=== PATIENT | female | born 1975 | race Two or more races ===

== ENCOUNTER 2022-11-14 11:45 | Outpatient (REF) | payer MEDICAID, OTHER, SELFPAY ==
--- NOTE | 2022-11-14 10:00 | EMG_ITS ---
Right median and ulnar motor and sensory studies were performed. Right radial sensory study was performed and paraspinal muscles were tested. IMPRESSION: [id number] right median neuropathy across carpal tunnel. MD BLANCA Holman/MELL / [id number]
== END 2022-11-14 11:46 | disposition home or self-care (01) ==
LOC: HO.NEURO 11:45
PROVIDERS: PCP Internal Medicine; Visit Provider Internal Medicine
DX: R20.0 Anesthesia of skin (principal)
CPT/HCPCS: 95886; 95909

== ENCOUNTER 2025-05-26 10:31 | Outpatient (REF) | payer OTHER, SELFPAY ==
--- OUTSIDE RECORDS SUMMARY | 2025-05-26 13:05 | XMS_ITS | Encounter Summary ---
Author Organization [employer] Address [address] [facility] 7 [place] [address] Care Team Providers Care Sleeve Setter Safety Stitch Name Role Phone Estela Honeycutt MD Primary Care Provider [phone] Reason for Visit * Reason Comments Med Refill Encounter Details Date Type Department Care Team ([facility] st Contact Info) Description 03/18/2024 Refill [facility] [address] [place] [address] Estela Honeycutt MD [address] [place] [address] Social History Tobacco Use Types Packs/Day Years Used Date Smoking Tobacco: Never Passive Smoke Exposure: Never Smokeless Tobacco: Never Alcohol Use Standard Drinks/Week Comments Never 0 (1 standard drink = 0.6 oz pur e alcohol) Depression Answer Date Recorded Patient Health Questionnaire-9 Score 3 10/18/2022 Housing Stability Answer Date Recorded What is your housing situation today? I have liane sandoval 06/11/[address] you li ve. Do you have problems with any of the following? None of the above 06/11/2023 Food Insecurity Answer Date Recorded Within the past 12 months, y ou worried that your food would run out before you got money to buy more: Never True 06/11/2023 Within the past 12 months,th e food you bought just didn't last and you didn't have enough money to get more: Never True 08/2022 Transportation Answer Date Recorded In the past 12 months, has l ack of transportation kept you from medical appts, meetings, work or from getting things needed for daily living? No 06/11/2023 Utilities Answer Date Recorded In the past 12 months, has t he electric, gas, oil or water company threatened to shut off services in your home? No 06/11/2023 Depression Answer Date Recorded Patient Health Questionnaire-2 Score 2 10/18/2022 Comments Unknown Sex and Gender Information Value Date Recorded Sex Assigned at Female 06/10/2022 10:38 AM EDT Legal Sex Female 10:38 AM EDT Gender Identity Female 06/10/2022 10:38 AM EDT Sexual Orientation Straight 06/10/2022 10 :38 AM EDT documented as of this encounter Plan of Treatment Not on file documented as of this encounter Visit Diagnoses Not on filedocumented in this encounter Additional Health Concerns Assessment Noted Time PHQ-9 Depression Total Score: 3 10/19/19 10:14 AM EST documented as of this encounter Care Teams Sleeve Setter Safety Stitch Relationship Specialty Start Date End Date Estela Honeycutt MD [address] [place] [id number] PCP - General Family Medicine 08/29/22 documented as of this encounter
--- OUTSIDE RECORDS SUMMARY | 2025-05-26 13:05 | XMS_ITS | Clinical Summary ---
Author Organization [employer] Address [address] [facility] 7 [place] [address] Care Team Providers Care Fourdrinier Machine Operator Name Role Phone Estela Honeycutt MD Primary Care Provider [phone] Allergies Active Allergy Reactions Criticality Noted Date Comments Ferumoxytol 08/30/2022 chest pain, abd pain, facial flushing. Epi needed Iodine Anaphylaxis High 02/19/2022 Medications Diclofenac Sodium 1 % gel Apply topically. 2 Active cyanocobalamin (Vitamin B-12) 1000 MCG tablet TAKE 1 TABLET BY MOUTH EVERY DAY 2 Active cholecalciferol (Vitamin D-3) 50 MCG (1999) capsuleIndicatio ns:Vitamin D deficiency Take 1 capsule (50 mcg) by mouth in the morning. 90 capsule 4 3 Active Elastic Bandages & Supports (Wrist Brace Deluxe/Right S/M) miscIndications: Numbness and tingling in right hand To use daily at bedtime 1 each 3 Active Additional Information Patient not taking.Reported on 02/17/2025 ferrous gluconate (Fergon) 324 (38 Fe) MG tablet Take 1 tablet (324 mg) by mouth 2 times daily. 180 tablet 1 3 Active triamcinolone (Kenalog) 0.5 % ointment Apply topically 2 times daily. 30 g 3 3 Active Additional Information Patient not taking.Reported on 02/17/2025 medroxyPROGESTER one (Provera) 5 MG tablet Take 1 tablet (5 mg) by mouth in the morning. 21 tablet 2 3 Active Additional Information Patient not taking.Reported on 02/17/2025 levothyroxine (Synthroid, Levoxyl) 125 MCG tabletIndication s:Hypothyroidism , unspecified type TAKE ONE TABLET DAILY BEFORE BREAKFAST 90 tablet 1 3 Active cetirizine (ZyrTEC) 10 MG tablet TAKE ONE TABLET EVERY MORNING 90 tablet 1 4 Active Additional Information Patient not taking.Reported on 02/17/2025 tiZANidine (Zanaflex) 4 MG tablet Take 4 mg by mouth. 4 Active sertraline (Zoloft) 25 MG tablet Take 25 mg by mouth. 3 Active oxyCODONE (Roxicodone) 5 MG immediate release tablet TAKE ONE TABLET BY MOUTH EVERY SIX HOURS NEEDED FOR PAIN 4 Active meloxicam (Mobic) 7.5 MG tablet Take 7.5 mg by mouth. 4 Active Active Problems Problem Noted Date Diagnosed Date Abnormal uterine bleeding 03/13/2023 Hyperlipidemia 01/23/2023 Assessment & Plan (01/23/2023 12:10 PM EDT): Will recheck levels. Chronic pain of right knee 10/18/2022 Assessment & Plan (01/23/2023 12:11 PM EDT): Patient with chronic persistent pain in R knee. Will schedule appointment for steroid injection. Numbness and tingling in right hand 10/18/2022 Hypothyroidism 08/30/2022 Assessment & Plan (01/23/2023 12:10 PM EDT): Will send labs to recheck levels. Iron deficiency anemia 08/30/2022 Encounters Date Type Department Care Team Description 03/24/2025 9:00 AM EDT Office Visit [facility] [address] [place] [address] Octavio Thomas DMD Full coverage crown needed for root canal-treated tooth (Primary Dx) 02/24/2025 10:00 AM EDT Office Visit [facility] [address] [place] [address] Octavio Thomas, ADRIANA Full coverage crown needed for root canal-treated tooth (Primary Dx) from Last 3 Months Family History Relation Name Status Comments Father Social History Tobacco Use Types Packs/Day Years Used Date Smoking Tobacco: Never Passive Smoke Exposure: Never Smokeless Tobacco: Never Tobacco Cessation:Counseling Given: Not Answered Alcohol Use Standard Drinks/Week Comments Never 0 [...] Orientation Straight 06/10/2022 10 :38 AM EDT Last Filed Vital Signs Vital Sign Reading Time Taken Comments Blood Pressure 120/76 03/24/2025 9:09 AM EDT Pulse 70 03/24/2025 9:09 AM EDT Temperature 37.1 C (98.8 F) 03/13/2023 3:58 PM EDT Respiratory Rate 20 03/13/2023 3:58 PM EDT Oxygen Saturation 98% 03/13/2023 3:58 PM EDT Inhaled Oxygen Concentration - - Weight 71.7 kg (158 lb) 03/13/2023 3:58 PM EDT Height 156 cm (5' 1.42 ) 03/13/2023 3:58 PM EDT Body Mass Index 29.45 03/13/2023 3:58 PM EDT Plan of Treatment Health Maintenance Due Date Last Done Comments CT Colonography 1977 Colonoscopy 1977 Colorectal Cancer Screening 1977 FIT DNA/Cologuard 1977 FIT 1977 FOBT 1977 HIV Screening 1977 Sigmoidoscopy 1977 Disability Screening 1977 Alcohol/Substance Use Screening 1989 Family Planning (PISQ) 1992 Hepatitis C Screening 12/27/1995 Hepatitis B Vaccines (1 of 3 - 19+ 3-dose series) 1996 Pap Smear 1998 Cervical Cancer Screening 12/27/2007 HPV/Cotest 12/27/2007 Mammogram 2017 Depression Screening 10/19/2023 10/18/2022, 10/19/19 23 SDOH Screening 10/19/2023 10/18/2022 Dental X-Ray: Full Mouth 03/06/2024 03/05/2021 Dental Oral Exam 07/25/2024 01/23/2024, , 03/05/2021 Dental Prophylaxis 08/28/2024 02/25/2024, 04/03/2022 COVID-19 Vaccine ( season) 2025 12/28/2020, 12/07/2020 Influenza Vaccine (#1) 2025 Dental X-Ray: Bitewings 09/21/2025 09/20/19 25, 01/23/2024, 04/03/2022, Additional history exists Tobacco Screening 03/24/2026 03/24/2025 Zoster Vaccines (1 of 2) 12/27/2027 DTaP/Tdap/Td Vaccines (2 - Td or Tdap) 02/18/2034 02/19/2024 RSV Patients and Patients Aged 60 years or older (1 - 1-dose 75+ series) 2052 HIB Vaccines Aged Out No longer eligi ble based on patient's age to complete this topic HPV Vaccines Aged Out No longer eligi ble based on patient's age to complete this topic Hepatitis A Vaccines Aged Out No long er eligible based on patient's age to complete this topic IPV Vaccines Aged Out No longer eligi ble based on patient's age to complete this topic Meningococcal B Vaccine Aged Out No l onger eligible based on patient's age to complete this topic Meningococcal Vaccine Aged Out No michael sondra eligible based on patient's age to complete this topic Pneumococcal Vaccine: Pediatrics (0 to 5 Years) and At-Risk Patients (6 to 49) Years Aged Out No longer eligible based on patient's age to complete this topic RSV under 20 months Aged Out No longe r eligible based on patient's age to complete this topic Rotavirus Vaccines Aged Out No longer eligible based on patient's age to complete this topic Procedures Procedure Name Priority Date/Time Associated Diagnosis Comments CASE PRESENTATION, DETAILED AND EXTENSIVE TREATMENT PLANNING Routine 03/24/2025 9:00 AM EDT Full coverage crown needed for root canal-treated tooth 3 CROWN - PORCELAIN/CERAMIC Routine 03/24/2025 9:00 AM EDT Full coverage crown needed for root canal-treated tooth CASE PRESENTATION, DETAILED AND EXTENSIVE TREATMENT PLANNING Routine 02/24/2025 10:00 AM EDT Full coverage crown needed for root canal-treated tooth 3 CROWN PREP Routine 02/24/2025 10:00 AM EDT Full coverage crown needed for root canal-treated tooth BITEWING - SINGLE RADIOGRAPHIC IMAGE Routine 09/20/2024 10:00 AM EST Dental caries Reversible pulpitis Full PROPHYLAXIS - ADULT Routine 024 3:00 PM EDT PERIODIC ORAL EVALUATION - ESTABLISHED PATIENT Routine 01/23/2024 8:00 AM EDT INTRAORAL - COMPLETE SERIES OF RADIOGRAPHIC IMAGES Routine 03/05/2021 12:00 AM EDT from Last 3 Months or Most Recently Relevant to Health Maintenance Insurance [facility] [employer] [facility] STAND ADULT Care Teams Fourdrinier Machine Operator Relationship Specialty Start Date End Date Estela Honeycutt MD [address] [place] [address] [phone] PCP - General Family Medicine 08/29/22
--- OUTSIDE RECORDS SUMMARY | 2025-05-26 13:05 | XMS_ITS | Encounter Summary ---
Author Organization [employer] Address [address] [facility] 7 [place] [address] Care Team Providers Care Lift Slab Operator Name Role Phone Estela Honeycutt MD Primary Care Provider [phone] Encounter Details Date Type Department Care Team (Latest Contact Info) Description 04/03/[address] [facility] CONVERSIONS Dental, Provider, DDS Social History Tobacco Use Types Packs/Day Years Used Date Smoking Tobacco: Never Assessed Comments Unknown Sex and Gender Information Value Date Recorded Sex Assigned at Female 06/10/2022 10:38 AM EDT Legal Sex Female 10:38 AM EDT Gender Identity Female 06/10/2022 10:38 AM EDT Sexual Orientation Straight 06/10/2022 10 :38 AM EDT documented as of this encounter Plan of Treatment Not on file documented as of this encounter Visit Diagnoses Not on filedocumented in this encounter Care Teams Lift Slab Operator Relationship Specialty Start Date End Date Estela Honeycutt MD [address] [place] [id number] PCP - General Family Medicine 08/29/22 documented as of this encounter
[2025-05-26 13:30] LABS: MANUAL DIFF FLAG NO
[2025-05-26 13:47] LABS: Hematocrit 41.3 % (37.0-47.0); Hemoglobin 13.1 g/dl (12.0-16.0); Imm Gran Abs Auto 0.02 X10*3/uL (0.00-0.03); Imm Gran Pct Auto 0.4 % (0.0-0.4); Lymphocytes Absolute Auto 1.2 X10*3/uL (1.2-4.9); Mean Corpuscular HGB Conc 31.7 g/dl (31.0-35.0); Mean Corpuscular Hemoglobin 24.1 pg (27.0-33.0); Mean Corpuscular Volume 76.1 fL (80.0-98.0); NRBC Abs Auto 0.000 X10*3/uL (0.0-0.012); NRBC Pct Auto 0.0 /100WBC (0.0-0.2); Platelet Count 184 X10*3/uL (160-400); Red Blood Count 5.43 X10*6/uL (4.20-5.50); White Blood Count 4.9 X10*3/uL (4.8-10.8)
[2025-05-26 14:27] LABS: Albumin Level 4.5 g/dL (3.5-5.0); Alkaline Phosphatase 51 U/L (39-117); Anion Gap 10 (12-20); Aspartate Amino Transferase 32 U/L (5-31); Blood Urea Nitrogen 13 mg/dL (9-16); Calcium 9.0 mg/dL (8.4-10.2); Carbon Dioxide 25 mmol/L (22-29); Chloride 110 mmol/L (96-108); Estimated Glomerular Filt Rate > 60; Ferritin 55 ng/mL (10-250); Potassium 4.6 mmol/L (3.3-5.1); Sodium 140 mmol/L (135-145); Thyroid Stimulating Hormone 0.61 uIU/mL (0.32-4.0); Total Protein 7.3 g/dL (6.5-8.0)
[2025-05-26 14:37] LABS: Alanine Aminotransferase 41 U/L (0-31); Folate 5.0 ng/mL (> or = 4.0); Vitamin B12 298 pg/mL (200-900)
[2025-05-27 20:39] LABS: Immunoglobulin A 177 mg/dL (47-310)
[2025-05-29 15:55] LABS: Intrinsic Factor Antibodies Negative (Negative)
== END 2025-05-26 10:32 | disposition home or self-care (01) ==
LOC: HO.10HDL 10:31
PROVIDERS: Visit Provider Internal Medicine
DX: Z00.01 Encounter for general adult medical examination with abnormal findings (principal); D50.0 Iron deficiency anemia secondary to blood loss (chronic); D51.9 Vitamin B12 deficiency anemia, unspecified; E03.9 Hypothyroidism, unspecified; R19.7 Diarrhea, unspecified
CPT/HCPCS: 36415; 80053; 82607; 82728; 82746; 82784; 83516; 84443; 85025; 86340; 86364

== ENCOUNTER 2025-07-27 09:21 | Outpatient (REF) | payer OTHER, SELFPAY ==
--- OUTSIDE RECORDS SUMMARY | 2025-07-27 12:47 | XMS_ITS | Encounter Summary ---
Author Organization [employer] Address [address] [place] [address] Care Team Providers Care Office Secretary Name Role Phone Estela Honeycutt MD Primary Care Provider [phone] Reason for Visit * Reason Comments Med Refill Encounter Details Date Type Department Care Team ([facility] st Contact Info) Description 03/18/2024 Refill [facility] [address] [place] [address] Estela Honeycutt MD [address] [place] [address] Social History Tobacco Use Types Packs/Day Years [...] as of this encounter Plan of Treatment Upcoming Encounters Date Type Department Care Team (Late st Contact Info) Description 11/02/2025 10:00 AM EDT Office Visit [facility] [address] [place] [address] Roe, Ilana, OD [address] [place] [address] documented as of this encounter Visit Diagnoses Not on filedocumented in this encounter Additional Health Concerns Assessment Noted Time PHQ-9 Depression Total Score: 3 10/19/19 23 10:14 AM EST documented as of this encounter Care Teams Office Secretary Relationship Specialty Start Date End Date Estela Honeycutt MD [address] [place] [address] PCP - General Family Medicine 08/29/22 documented as of this encounter
--- OUTSIDE RECORDS SUMMARY | 2025-07-27 12:47 | XMS_ITS | Clinical Summary ---
Author Organization [employer] Address [address] [facility] [facility] [address] [place] [address] Care Team Providers Care Skidder Runner Name Role Phone Estela Honeycutt MD Primary Care Provider [phone] Allergies Active Allergy Reactions Criticality Noted Date [...] Encounters Date Type Department Care Team Description 07/19/2025 Orders Only [facility] [address] [place] [address] Octavio Thomas DMD 06/27/2025 Travel from Last 3 Months Family History Relation [...] 03/13/2023 3:58 PM EDT Plan of Treatment Upcoming Encounters Date Type Department Care Team (Late st Contact Info) Description 11/02/2025 10:00 AM EDT Office Visit [facility] [address] [place] [address] Ilana Au, OD [address] [place] [address] Health Maintenance Due Date Last Done Comments [...] Vaccine (#1) 2025 Dental X-Ray: Bitewings 09/21/2025 09/20/19, 01/23/2024, 04/03/2022, Additional history exists Tobacco Screening [...] Procedure Name Priority Date/Time Associated Diagnosis Comments BITEWING - SINGLE RADIOGRAPHIC IMAGE Routine 09/20/2024 10:00 AM EST Dental caries Reversible pulpitis Full PROPHYLAXIS - ADULT Routine 024 3:00 PM EDT PERIODIC ORAL EVALUATION - ESTABLISHED PATIENT Routine 01/23/2024 8:00 AM EDT INTRAORAL - COMPLETE SERIES OF RADIOGRAPHIC IMAGES Routine 03/05/2021 12:00 AM EDT from Last 3 Months or Most Recently Relevant to Health Maintenance Insurance [facility] STANDARD [facility] MEDICAID STAND ADULT Care Teams Skidder Runner Relationship Specialty Start Date End Date Estela Honeycutt MD [address] [place] [address] PCP - General Family Medicine 08/29/22
--- OUTSIDE RECORDS SUMMARY | 2025-07-27 12:47 | XMS_ITS | Encounter Summary ---
Author Organization [employer] Address [address] [facility] [address] [place] [address] Care Team Providers Care Sales Administrator Name Role Phone Estela Honeycutt MD Primary Care Provider [phone] Encounter Details Date Type Department Care Team (Latest Contact Info) Description 04/03/2022 Abstract [facility] CONVERSIONS Dental, Provider, DDS Social History Tobacco [...] Description 11/02/2025 10:00 AM EDT Office Visit [facility] [address] [place] [address] Roe, Ilana, OD [address] [place] [address] documented as of this encounter Visit Diagnoses Not on filedocumented in this encounter Care Teams Sales Administrator Relationship Specialty Start Date End Date Estela Honeycutt MD [address] [place] [address] PCP - General Family Medicine 08/29/22 documented as of this encounter
[2025-07-27 13:50] LABS: Cholesterol 172 mg/dL (<200); HDL Cholesterol 45 mg/dL (>40); Iron 52 mcg/dL (30-160); Percent Iron Saturation 15 % (15-50); Total Iron Binding Capacity 336 mcg/dL (228-428); Triglycerides 97 mg/dL (<150); Unsaturated Iron Binding 284 ug/dL
[2025-07-28 04:44] LABS: HBS Num1 0.00 mIU/mL (0-7.99); HBc Num1 0.06 S/CO (0.00-0.79); HIV Num 1 0.08 S/CO (0.00-0.99); Hepatitis A Antibody IgM 0.19 Index (0-0.79); ~HepC Num1 0.07 S/CO (0.00-0.79); ~Hepatitis A Antibody IgM Nonreactive (Nonreactive); ~Hepatitis B Surface Antibody NONREACTIVE (Nonreactive); ~Hepatitis C Antibody Nonreactive (Nonreactive)
[2025-07-28 04:58] LABS: Syphilis Screen Nonreactive (Nonreactive)
[2025-07-28 13:35] LABS: HBsAGNum1 0.29 S/CO (0.00-0.99); Hepatitis B Surface Antigen Negative (Negative)
== END 2025-07-27 09:22 | disposition home or self-care (01) ==
LOC: HO.10HDL 09:21
PROVIDERS: PCP Physician Assistant; Visit Provider Student in an Organized Health Care Education/Training Program
DX: Z00.00 Encounter for general adult medical examination without abnormal findings (principal); D50.9 Iron deficiency anemia, unspecified; E03.9 Hypothyroidism, unspecified; E53.8 Deficiency of other specified B group vitamins; M25.561 Pain in right knee; M25.562 Pain in left knee; Z79.890 Hormone replacement therapy
CPT/HCPCS: 36415; 80061; 82306; 83036; 83540; 83921; 86704; 86706; 86709; 86780; 86803; 87340; 87389; 96127; 99202; 99386

== ENCOUNTER 2025-07-27 09:21 | Outpatient (AMB) | payer OTHER, MEDICAID, SELFPAY ==
--- NOTE | 2025-07-27 09:26 | A.OFFPC_ITS ---
Vital Signs 07/27/25 09:29 Height 5 ft 1.5 in Weight 171 lb BMI 31.8 BP 120/80 Blood Pressure Location Lt brachial Position Sitting Pulse 62 Pulse Source Pulse Oximeter Temp 97.8 F Temp Source Temporal Artery Scan Pulse Oximetry (%) 98 Oxygen Delivery Method Room Air Intake Visit Reasons: New Patient Bridge Rigger Required: No Accompanied by: Self / Same As Patient Allergies No Known Allergies Allergy (Verified 07/27/25 09:27) Medication List - Last Reconciled 07/27/25 by Jovanny Cisneros MD levothyroxine 125 mcg PO DAILY Tobacco use date assessed: 07/27/25 Dental Screening Dental Screen Date: 07/27/25 Did you have a dental visit in the last 12 months?: Yes Did you have a dental problem in the last 6 months where you did not have access to dental care?: No HPI HPI Comments History of Present Illness Details History of Present Illness The patient is a 49 year old female presenting to [facility] care and for management of her chronic medical conditions. She has a history of hypothyroidism and takes levothyroxine 125 mcg regularly. Her recent thyroid level was 0.61, indicating it is well-controlled. She does not see an central communications specialist for this condition. The patient has a long-standing history of anemia for which she receives iron infusions at [facility], with her next scheduled visit in September. She reports a history of an allergic reaction to an unspecified iron formulation that required epinephrine. About six months ago, she was admitted to the emergency department for significant right-sided numbness and was diagnosed with a severe vitamin B12 deficiency, for which she received B12 injections. She has since stopped the injections, and her current B12 levels are borderline. She also reports bilateral knee pain that worsens with walking, although she continues to walk regularly. A previous physician had recommended knee X-rays and physical therapy, which were not completed due to insurance issues, and a trial of topical ointment was not helpful. For health maintenance, the patient is overdue for a mammogram, Pap smear, and colonoscopy. She has never had a mammogram or Pap smear. She had a colonoscopy scheduled for next October but was uncomfortable because the provider was male. She was also told previously that she may be pre-diabetic based on her A1c levels. Medical History: - Hypothyroidism, managed with levothyro xine 125 mcg - Iron deficiency anemia, requiring intr avenous iron infusions - Vitamin B12 deficiency, previously valentin ated with injections - Allergic reaction to an intravenous ir on formulation - Bilateral knee pain - History of right-sided numbness second minoo to B12 deficiency - Pre-diabetes - History of treatment for an unspecifie d condition, Kypertone Surgical History: - sections Medications: - Levothyroxine 125 mcg for hypothyroidi sm Family History: - Denies family history of heart disease , diabetes, or cancer. Diagnostic Results: - TSH: 0.61 (May) - CBC: Revealed microcytosis without ane db. - Vitamin B12: Borderline level. - Hemoglobin A1c: Previously elevated, s uggestive of pre-diabetes. Social History - Substance Use: Denies ever smoking, al cohol use, or illicit drug use. 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 - Exercise: Reports walking regularly. - Vaccinations: Has received COVID-19 Pricebets ccinations; declines the flu shot. [facility] Medical History (Updated 07/27/25 @ 10:25 by Jovanny Cisneros MD) Annual physical exam B12 deficiency Iron deficiency anemia Hypothyroidism (acquired) Knee pain Microcytic anemia Family History (Updated 07/27/25 @ 09:34 by Veronika Lacy MA) Mother No problems noted. Father No problems noted. Social History Housing: Condominium Patient Tobacco Use Status: Never used Tobacco e-Cigarette/Vaping Use: Never Used service: No Current occupational status: employed Cognitive needs: No Hearing needs: No Vision needs: Yes (reading glasses) Questionnaire PHQ-9 Over the last 2 weeks, how often have you been bothered by any of the following problems? 1. Little interest or pleasure in doing things: not at all 2. Feeling down, depressed, or hopeless: not at all 3. Trouble falling or staying asleep, or sleeping too much: not at all 4. Feeling tired or having little energy: not at all 5. Poor appetite or overeating: not at all 6. Feeling bad about yourself - or that you are a failure or have let yourself or your family down: not at all 7. Trouble concentrating on things, such as reading the newspaper or watching television: not at all 8. Moving or speaking so slowly that other people could have noticed. Or the opposite - being so fidgety or restless that you have been moving around a lot more than usual: not at all 9. Thoughts that you would be better off or of hurting yourself in some way: not at all Total score: 0 Depression Screening Interpretation: Negative Depression Screening Done: Yes 73791 - PHQ-9 Billing: Yes Source: Developed by Drs. Rambo Plunkett, Antonietta Hoyt, Ronak Clark and colleagues, with an educational cristopher from [employer]. Thrive Questionnaire Date Thrive assessed: 07/27/25 I am a: Patient Within the past 12 months, did the food you bought not last and you didn't have the money to get more?: Never true Within the past 12 months, did you worry whether your food would run out before you got money to buy more?: Never true Do you have trouble paying for medicines?: No Do you have trouble getting transportation to medical appointments?: No Do you have trouble paying your heating and electricity bill?: No Do you have trouble taking care of your child, family member or friend?: No Do you have trouble with day-to-day activities such as bathing, preparing meals, shopping, managing finances, etc.?: No Are you currently unemployed and looking for a job?: No Are you interested in more education?: No THRIVE Score: 0 AUDIT C Alcohol Use Questionnaire (AUDIT-C) 1. How often do you have a drink containing alcohol?: Never 3. How often do you have six or more drinks on one occasion?: Never Total Score: 0 Score Reviewed/Action Taken: Yes SUJATHA-7 AMB Questionnaire SUJATHA-7 Date SUJATHA - 7 assessed: 07/27/25 Feeling nervous, anxious, or on edge: 0 = Not at all Not being able to stop or control worryin = Not at all Worrying too much about different things: 0 = Not at all Trouble relaxin = Not at all Being so restless that it is hard to sit still: 0 = Not at all Becoming easily annoyed or irritable: 0 = Not at all Feeling afraid as if something awful might happen: 0 = Not at all Total SUJATHA-7 score (0-4 normal; 5-9 mild; 10-14 moderate; 15-21 severe): 0 Source: Developed by Drs. Rambo Plunkett, Antonietta Hoyt, Ronak Clark and colleagues, with an educational cristopher from [employer]. SUJATHA-7 Assessment Billing SUJATHA-7 Assessment Tool: SUJATHA-7 Assessment 47902 Review of Systems Narrative Review of Systems - Constitutional: Denies fever, chills. - Cardiovascular: Denies chest pain. - Respiratory: Denies shortness of breath. - Gastrointestinal: Denies nausea or vomiting. - Musculoskeletal: Reports bilateral knee pain, which is exacerbated by walking. - Neurological: Reports a history of right-sided numbness which has since resolved. All systems reviewed & are unremarkable except as reviewed in HPI and above Physical exam (Primary Care) Vital Signs: Last Vital Signs Temp 97.8 F 07/27/25 09:29 Pulse 62 07/27/25 09:29 BP 120/80 07/27/25 09:29 Pulse Ox 98 07/27/25 09:29 Oxygen Delivery Method Room Air 07/27/25 09:29 BMI result Body Mass Index 31.8 Tobacco/Smoking Status: Tobacco use Status Tobacco use date assessed 07/27/25 07/27/25 09:31 Patient Tobacco Use Status Never used Tobacco 07/27/25 09:31 e-Cigarette/Vaping Use Never Used 07/27/25 09:34 PHQ-9: PHQ-9 Score PHQ-9: Total score 0 07/27/25 09:50 Depression Screening Interpretation: Negative Thrive Assessment: Date of Thrive Assessment Date Thrive assessed 07/27/25 07/27/25 09:31 Narrative Physical Exam General: +Alert and oriented, Well nourished, No acute distress. Eye: Pupils are equal, round and reactive to light, Intact accommodation, Extraocular movements are intact, Normal conjunctiva, Vision unchanged. HENT: Normocephalic, Atraumatic, Tympanic membranes are clear, Normal hearing, Oral mucosa is moist, No pharyngeal erythema, Ear canals patent. Respiratory: Lungs CTA bilaterally, No wheeze, Respirations are non-labored. Cardiovascular: Regular rate, Regular rhythm, S1 auscultated, S2 auscultated, No murmur, Good pulses equal in all extremities, Normal peripheral perfusion, No edema. Gastrointestinal: Soft, Non-tender, Non-distended, Normal bowel sounds, No organomegaly. Musculoskeletal: Normal range of motion, Normal strength, No tenderness, No swelling, No deformity, Normal gait. Patient reports knee pain and has been referred for knee x-rays and therapy. Integumentary: Warm, Dry, [place], Intact. Neurologic: Alert, Oriented, Normal sensory, Normal motor function, No focal defects, Cranial Nerves II-XII are grossly intact, Normal deep tendon reflexes. Psychiatric: Cooperative, Appropriate mood & affect, Normal judgment. Coding Level of Care Code New Pt Level 4 (52510) New Pt Prev Care 40-64y(68806) Diagnoses Hypothyroidism (acquired) E03.9 Iron deficiency anemia, unspecified iron deficiency anemia type D50.9 Iron deficiency anemia type: unspecified iron deficiency B12 deficiency E53.8 Pain in both knees, unspecified chronicity M25.561; M25.562 Chronicity: unspecified Laterality: bilateral Annual physical exam Z00.00 Additional Codes SUJATHA-7 Assessment Billing - SUJATHA-7 Assessment Tool: SUJATHA-7 Assessment 50423 ([id number]) PHQ-9 - 51606 - PHQ-9 Billing: Yes ([id number]) Comment 44838-05 Assessment & Plan Assessment & Plan (1) Hypothyroidism (acquired): Comment: - Condition is well-controlled on levothyroxine 125 mcg, with a recent TSH of 0.61. - Plan to continue current medication dosage and re-check thyroid levels with routine labs. Code(s): E03.9 - Hypothyroidism, unspecified Category: Medical (2) Iron deficiency anemia: Comment: - Patient has a history of long-standing anemia requiring infusions and a past allergic reaction. - Plan to order an iron panel to assess current status. - Advised the patient to identify the specific iron formulation that caused the prior reaction. - Informed her that infusions are available at this facility. Code(s): D50.9 - Iron deficiency anemia, unspecified Category: Medical Qualifiers: Iron deficiency anemia type: unspecified iron deficiency Qualified Code(s): D50.9 - Iron deficiency anemia, unspecified (3) B12 deficiency: Comment: - History of significant deficiency with neurological symptoms. - Current levels are borderline. - Plan to check vitamin B12 levels. Code(s): E53.8 - Deficiency of other specified B group vitamins Category: Medical (4) Knee pain: Comment: - Patient reports pain in both knees, worse with walking. - Plan to order bilateral knee X-rays to evaluate for underlying pathology. - Discussed that physical therapy is often a mainstay of treatment. Code(s): M25.569 - Pain in unspecified knee Category: Medical Qualifiers: Chronicity: unspecified Laterality: bilateral Qualified Code(s): M25.561 - Pain in right knee; M25.562 - Pain in left knee (5) Annual physical exam: Comment: - The patient is new to the practice. - Plan includes a comprehensive work-up and establishing care for long-term follow-up. - Will see back in 3-6 months to review results and continue management. - The patient is overdue for multiple screenings. - Plan includes: ordering a mammogram for breast cancer screening, referring to SHIP RIGGER APPRENTICE for a Pap smear, and referring to a female home appliances mechanic for a c olonoscopy. - Will also perform baseline lab screening, including an A1c for diabetes, a lipid panel, hepatitis screen, HIV screen, urinalysis, and vitamin D level. Code(s): Z00.00 - Encounter for general adult medical examination without abnormal findings Category: Medical Plan: Health Maintenance: - Diabetes screening: Will order an A1c to screen for diabetes due to a prior borderline result. - Breast cancer screening: Ordered a mammogram, as the patient reports never having had one. - Cervical cancer screening: Advised patient to get a Pap smear and will place a referral to SHIP RIGGER APPRENTICE, as she has never had one. - Colon cancer screening: Patient is due for a colonoscopy. Given her discomfort with a male provider, a referral will be sent to a female home appliances mechanic. - Vaccinations: Patient has received COVID-19 shots but declined the influenza vaccine today. - Lab screening: Ordered a lipid panel, hepatitis panel, HIV screen, vitamin D level, and iron panel for comprehensive health assessment. Patient was informed and verbally consented to the use of an ambient scribe for clinic note documentation during this visit. Vital signs reviewed. Comprehensive history, review of systems, and physical exam completed. Medications, allergies, and problem list reviewed and updated. Counseling provided on nutrition, regular exercise, sleep hygiene, and moderation of alcohol use. Discussed age-appropriate screenings (mammogram, colonoscopy, Pap, bone density) and immunizations (flu, COVID, shingles, Tdap). Screened for depression, fall risk, and home safety; no current concerns. Discussed stress management, dental and vision care, and importance of ongoing preventive follow-up. Routine labs ordered for metabolic and lipid screening. Patient educated on healthy lifestyle and agrees with the plan. Plan I introduced myself as the patient is new to our practice. We discussed her chronic conditions, including her well-controlled hypothyroidism and history of iron and B12 deficiencies. I explained the plan to order a comprehensive set of labs today, including an iron panel, B12 level, A1c for diabetes screening, and a lipid panel. I emphasized the importance of prevention and we reviewed her overdue health screenings. I ordered a mammogram and informed her that our staff would call to schedule it. Regarding her colonoscopy, I acknowledged her preference and will refer her to one of our female gastroenterologists. I also recommended she establish care with a print production coordinator for her Pap smear and will provide a referral. In response to her knee pain, I ordered bilateral knee x-rays to assess for underlying causes. I advised her that all the requisitions for her labs and imaging are ready, and she can complete them today. I recommended she follow up in 3-6 months to review results and for ongoing care, and advised that we will call her if any results are significantly abnormal. Orders: Orders Hepatitis A,B,C Profile Today Z00.00 - Encounter for general adult medical examination without abnormal findings HIV Ab/Ag Today Z00.00 - Encounter for general adult medical examination without abnormal findings Lipid Panel Today Z00.00 - Encounter for general adult medical examination without abnormal findings Vitamin D 25-OH Total Today Z00.00 - Encounter for general adult medical examination without abnormal findings XR Knee Ronnie 4V Today M25.569 - Pain in unspecified knee Hemoglobin A1c Today Z00.00 - Encounter for general adult medical examination without abnormal findings Microalbumin, Random (w Creat) Today Z00.00 - Encounter for general adult medical examination without abnormal findings Syphilis Screen Today Z00.00 - Encounter for general adult medical examination without abnormal findings IRON PROFILE Today D50.9 - Iron deficiency anemia, unspecified MM tomosynthesis screening BI Today Z12.31 - Encounter for screening mammogram for malignant neoplasm of breast Methylmalonic Acid Today D50.9 - Iron deficiency anemia, unspecified Referrals Open Access Screening Colonoscopy Referral Z12.11 - Encounter for screening for malignant neoplasm of colon PHYSICAL OPTICS TEACHER Referral Z12.4 - Encounter for screening for malignant neoplasm of cervix Patient Instructions: - Please go to the lab, which is across the coates, to have your blood drawn today. - You will need to go to the radiology department in the hospital across the street to get X-rays of both knees. - Someone from our office will call you to schedule your mammogram. - We will give you a referral to see a print production coordinator for a Pap smear and a female stomach doctor (home appliances mechanic) for a colonoscopy. - Continue taking your thyroid medication, levothyroxine 125 mcg, as prescribed. - Please try to find out the name of the iron medication that caused your previous allergic reaction. - Schedule a follow-up appointment at the lead front desk agent for 3-6 months from now. - We will call you if any of your test results are abnormal.
[2025-07-27 09:29] VITALS: BP 120/80; PULSE 62; TEMP 36.6; O2SAT 98; BMI 31.8
== END 2025-07-27 10:03 | disposition home or self-care (01) ==
PROVIDERS: PCP Physician Assistant; Visit Provider Student in an Organized Health Care Education/Training Program
DX: Z00.00 Encounter for general adult medical examination without abnormal findings (principal); E03.9 Hypothyroidism, unspecified; M25.561 Pain in right knee; M25.562 Pain in left knee; D50.9 Iron deficiency anemia, unspecified; E53.8 Deficiency of other specified B group vitamins